=== PATIENT | female | born 1995 | race Caucasian/White ===

== ENCOUNTER 2017-08-17 07:53 | Day surgery (SDC) | payer OTHER ==
[2017-08-17] MEDS: COCAINE 4% 4 ML TOP (12:30)
[2017-08-17] MEDS ORDERED: LIDOCAINE 1%/EPI 30 ML INJ (12:30)
[2017-08-17] MEDS: LIDOCAINE 1%/EPI 30 ML INJ INJ (12:30)
[2017-08-17] MEDS ORDERED: COCAINE 4% 4 ML TOP (12:31)
[2017-08-17] MEDS ORDERED: FENTAnyl 50 MCG/ML VIAL ×2 (12:36→13:51)
[2017-08-17] MEDS ORDERED: MIDAZOLAM 1 MG/ML 2 ML INJ (12:36)
[2017-08-17] MEDS ORDERED: CEFAZOLIN 1 GM INJ (12:46)
[2017-08-17] MEDS ORDERED: DEXAMETHASONE 4 MG/ML 1 ML INJ (12:54)
[2017-08-17] MEDS: NEOMYC/POLYMYX/BACIT 30 GM OINT TOP (13:19)
[2017-08-17] MEDS ORDERED: GLYCOPYRROLATE 0.4 MG INJ (13:37)
[2017-08-17] MEDS ORDERED: PROPOFOL 20 ML (13:37)
[2017-08-17] MEDS ORDERED: LIDOCAINE 2% (SDV) 5 ML INJ (13:37)
[2017-08-17] MEDS ORDERED: ROCURONIUM 50 MG INJ (13:37)
[2017-08-17] MEDS ORDERED: NEOSTIGMINE 3 MG/3 ML SYRINGE (13:37)
[2017-08-17] MEDS ORDERED: ONDANSETRON 4 MG INJ ×2 (13:38→13:51)
[2017-08-17] MEDS: FENTAnyl 50 MCG/ML VIAL IV ×3 (13:56→14:16)
[2017-08-17] MEDS: ONDANSETRON 4 MG INJ IV (13:59)
[2017-08-17] MEDS: IBUPROFEN 600 MG TAB PO (15:10)
== END 2017-08-17 16:00 | disposition home or self-care (01) ==
LOC: SDS 07:53
DX: J34.2 Deviated nasal septum (principal); J34.3 Hypertrophy of nasal turbinates; J45.909 Unspecified asthma, uncomplicated
CPT/HCPCS: 30140; 88300

== ENCOUNTER 2018-11-08 06:23 | Day surgery (SDC) | payer OTHER ==
[2018-11-08] MEDS: DEXAMETHASONE 4 MG/ML 1 ML INJ (07:25)
[2018-11-08] MEDS ORDERED: PROPOFOL 100 ML (07:25)
[2018-11-08] MEDS ORDERED: FENTAnyl 50 MCG/ML VIAL (07:26)
[2018-11-08] MEDS ORDERED: LIDOCAINE 2% (SDV) 5 ML INJ (08:17)
[2018-11-08] MEDS ORDERED: KETOROLAC 30 MG INJ (08:17)
[2018-11-08] MEDS ORDERED: CEFAZOLIN 1 GM INJ (08:17)
[2018-11-08] MEDS ORDERED: KETOROLAC 30 MG INJ IV (08:30)
[2018-11-08] MEDS ORDERED: DIPHENHYDRAMINE 50 MG INJ IV (08:30)
[2018-11-08] MEDS ORDERED: FENTAnyl 50 MCG/ML VIAL IV ×3 (08:30)
[2018-11-08] MEDS ORDERED: MEPERIDINE 25 MG INJ IV (08:30)
[2018-11-08] MEDS ORDERED: LABETALOL HCL 20MG INJ IV (08:30)
[2018-11-08] MEDS ORDERED: ONDANSETRON 4 MG INJ IV (08:30)
[2018-11-08] MEDS ORDERED: hydrALAzine 20 MG INJ IV (08:30)
[2018-11-08] MEDS ORDERED: OXYCODONE/ACETAMINOPHEN (5/325) TAB PO ×2 (08:30)
[2018-11-08] MEDS ORDERED: METOCLOPRAMIDE 10 MG INJ IV (08:30)
[2018-11-08] MEDS ORDERED: EPHEDrine SULFATE 50 MG/5 ML SYG IV (08:30)
[2018-11-08] MEDS ORDERED: ALBUTEROL 0.083% (NEB) 2.5 MG/3 ML AMP HHN (08:30)
[2018-11-08] MEDS: BUPIVACAINE 0.5% (SDV) 30 ML INJ (08:36)
[2018-11-08] MEDS: LIDOCAINE 2% (MDV) 20 ML INJ (08:37)
[2018-11-08] MEDS: POLYMYXIN/BACITRACIN 1L IRRIG (08:37)
[2018-11-08] MEDS: LACTATED RINGER'S 1,000 ML IV (08:47)
== END 2018-11-08 09:48 | disposition home or self-care (01) ==
LOC: SDS 06:23
DX: M21.611 Bunion of right foot (principal); M20.11 Hallux valgus (acquired), right foot
CPT/HCPCS: 28299